=== PATIENT | female | born 1995 | race Caucasian/White ===

== ENCOUNTER 2020-11-15 02:46 | Emergency (ER) | payer OTHER ==
[2020-11-15 02:56] VITALS: BP 121/71; PULSE 85; RESP 18; TEMP 98.3
--- NOTE | 2020-11-15 03:11 | ED ---
Recheck HPI - General Chief Complaint: Recheck/Abnormal Lab/Rx Stated Complaint: Covid Test Time Seen by Provider: 11/15/20 02:53 Source: patient Mode of arrival: ambulatory Limitations: no limitations - Related Data Home Medications Medication Instructions Recorded Confirmed No Known Home Medications 11/15/20 11/15/20 Allergies Allergy/AdvReac Type Severity Reaction Status Date / Time No Known Allergies Allergy Verified 11/15/20 02:56 Review of Systems ROS Statement: Those systems with pertinent positive or pertinent negative responses have been documented in the HPI. ROS Other: All systems not noted in ROS Statement are negative. Past Medical History Past Medical History: No Reported History History of Any Multi-Drug Resistant Organisms: None Reported Past Surgical History: No Surgical Hx Reported Past Psychological History: No Psychological Hx Reported Smoking Status: Never smoker Past Alcohol Use History: None Reported Past Drug Use History: None Reported General Exam Limitations: no limitations Course Vital Signs 11/15/20 02:50 Temperature 98.3 F Pulse Rate 85 Respiratory 18 Rate Blood Pressure 121/71 O2 Sat by Pulse 100 Oximetry Disposition Clinical Impression: Normal exam Disposition: HOME SELF-CARE Condition: Good Instructions (If sedation given, give patient instructions): Normal Exam (ED) Is patient prescribed a controlled substance at d/c from ED?: No Referrals: None,Stated [Primary Care Provider] - 1-2 days
== END 2020-11-15 03:49 | disposition home or self-care (01) ==
LOC: EC 02:46
DX: Z20.822 Contact with and (suspected) exposure to COVID-19 (principal)
CPT/HCPCS: 87635; 99283; U0003; U0005